=== PATIENT | female | born 1970 | race Caucasian/White ===

== ENCOUNTER 2020-05-27 14:31 | Outpatient (CLI) | payer BC | END 2020-05-27 14:32 | disposition home or self-care (01) | LOC: CSHMRI 14:31 | PROVIDERS: ATTEND Surgery | DX: M79.606 Pain in leg, unspecified (principal); Z98.890 Other specified postprocedural states; M41.9 Scoliosis, unspecified; M47.816 Spondylosis without myelopathy or radiculopathy, lumbar region; M25.78 Osteophyte, vertebrae; M48.061 Spinal stenosis, lumbar region without neurogenic claudication; M51.26 Other intervertebral disc displacement, lumbar region | CPT/HCPCS: 72110; 72131; 72148 ==

== ENCOUNTER 2021-02-19 13:39 | Outpatient (CLI) | payer BC | END 2021-02-19 13:40 | disposition home or self-care (01) | LOC: CSHMAMMO 13:39 | PROVIDERS: ATTEND Obstetrics & Gynecology | DX: Z12.31 Encounter for screening mammogram for malignant neoplasm of breast (principal) | CPT/HCPCS: 77063; 77067 ==

== ENCOUNTER 2022-03-10 15:19 | Outpatient (CLI) | payer BC | END 2022-03-10 15:20 | disposition home or self-care (01) | LOC: CSHMAMMO 15:19 | PROVIDERS: ATTEND Obstetrics & Gynecology | DX: Z12.31 Encounter for screening mammogram for malignant neoplasm of breast (principal) | CPT/HCPCS: 77063; 77067 ==

== ENCOUNTER 2022-10-28 10:04 | Outpatient (CLI) | payer BC | END 2022-10-28 10:05 | disposition home or self-care (01) | LOC: CSHMRI 10:04 | PROVIDERS: ATTEND Surgery | DX: M47.26 Other spondylosis with radiculopathy, lumbar region (principal); R10.32 Left lower quadrant pain; Z98.890 Other specified postprocedural states | CPT/HCPCS: 72110; 72148 ==

== ENCOUNTER 2023-04-20 13:57 | Outpatient (CLI) | payer BC | END 2023-04-20 13:58 | disposition home or self-care (01) | LOC: CSHMAMMO 13:57 | PROVIDERS: ATTEND Obstetrics & Gynecology | DX: Z12.31 Encounter for screening mammogram for malignant neoplasm of breast (principal) | CPT/HCPCS: 77063; 77067 ==